=== PATIENT | female | born 1955 | race Caucasian/White ===

== ENCOUNTER 2019-09-26 11:46 | Outpatient (CLI) | payer BC, SELFPAY ==
[2019-09-26 12:36] LABS: Basophils Absolute Auto 0.1 K/mm3 (0.0-0.1); Basophils Percent Auto 0.9 % (0.2-1.2); Eosinophils Absolute Auto 0.2 K/mm3 (0-0.3); Eosinophils Percent Auto 3.8 % (0-4.4); Hematocrit 39.3 % (37.0-47.0); Hemoglobin 12.6 g/dL (12.0-15.0); Immature Granulocyte Absolute 0.02 K/mm3 (0.00-0.031); Immature Granulocyte Percent A 0.4 % (0-0.5); Lymphocytes Absolute Auto 2.53 K/mm3 (0.9-3.2); Lymphocytes Percent Auto 46.3 % (18.3-44.2); Mean Corpuscular HGB Conc 32.1 g/dl (32-36); Mean Corpuscular Hemoglobin 30.4 pg (26-34); Mean Corpuscular Volume 94.7 fl (80-100); Mean Platelet Volume 9.6 fl (7.4-10.4); Monocytes Absolute Auto 0.4 K/mm3 (0.1-0.6); Monocytes Percent Auto 7.1 % (2.6-8.5); Neutrophils Absolute Auto 2.3 K/mm3 (1.3-6.7); Neutrophils Percent Auto 41.5 % (45.5-73.1); Platelet Count Result 254 k/mm3 (150-375); Red Blood Count 4.15 M/mm3 (4.2-5.4); Red Cell Distribution Width 12.5 % (11.5-14.5); White Blood Count 5.5 K/mm3 (4.5-10.0)
[2019-09-26 13:45] LABS: Albumin Level 4.2 g/dL (3.5-5.1)
[2019-09-26 13:46] LABS: Alanine Aminotransferase 25 U/L (4-35); Alkaline Phosphatase 66 U/L (38-126); Aspartate Amino Transferase 33 U/L (14-36); Bilirubin,Total 0.6 mg/dL (0.2-1.3); Blood Urea Nitrogen 10 mg/dL (7-17); Calcium 9.3 mg/dL (8.4-10.2); Carbon Dioxide 27 mmol/L (22-30); Chloride 107 mmol/L (98-107); Estimated Glomerular Filt Rate > 60; Glucose 80 mg/dL (65-105); Potassium 4.3 mmol/L (3.4-5.0); Sodium 140 mmol/L (137-145)
== END 2019-09-26 11:47 | disposition home or self-care (01) ==
PROVIDERS: PCP Internal Medicine; Visit Provider Internal Medicine
DX: K21.9 Gastro-esophageal reflux disease without esophagitis (principal)
CPT/HCPCS: 36415; 80053; 85025

== ENCOUNTER 2019-09-29 06:12 | Outpatient (CLI) | payer BC, SELFPAY | END 2019-09-29 06:13 | disposition home or self-care (01) | PROVIDERS: PCP Internal Medicine; Visit Provider Internal Medicine Gastroenterology | DX: Z01.812 Encounter for preprocedural laboratory examination (principal); Z20.828 Contact with and (suspected) exposure to other viral communicable diseases | CPT/HCPCS: 87635; C9803; U0003 ==

== ENCOUNTER 2019-10-01 01:01 | Day surgery (SDC) | payer BC, SELFPAY ==
[2019-09-25 12:52] VITALS: BMI 23.0
[2019-10-01 08:31] VITALS: BP 128/72; PULSE 82; RESP 18; TEMP 36.6; O2SAT 100
[2019-10-01] MEDS: LACTATED RINGERS 1,000 ML 150 ML IV CONT (08:43)
--- NOTE | 2019-10-01 08:46 | WPDANESEPPF ---
Anes - Initial Pre Proc Eval Procedure: Operation Date: 10/01/19 09:00 Proposed Procedures p Esophagogastroduodenoscopy & Colonoscopy - Behzad Cardoso MD Date/Time: 10/01/19 08:46 Surgeon: Behzad Cardoso MD Pre Op Diagnosis: Dysphagia/ Colitis Patient Data Age: 63 Gender: F Height: 5 ft 3 in Weight: 58.8 kg Last Vital Signs Temp 97.8 F 10/01/19 08:31 Pulse 82 10/01/19 08:31 Resp 18 10/01/19 08:31 BP 128/72 10/01/19 08:31 Pulse Ox 100 10/01/19 08:31 Allergies Allergy/AdvReac Type Severity Reaction Status Date / Time [id number] Antimigraine Allergy Severe Chest pain Verified 10/01/19 08:29 Agents aspirin Allergy Unknown Unknown Verified 10/01/19 08:29 diclofenac Allergy Unknown Unknown Verified 10/01/19 08:29 misoprostol Allergy Unknown Unknown Verified 10/01/19 08:29 Penicillins Allergy Unknown Unknown Verified 10/01/19 08:29 NONSTEROIDAL Allergy Mild GI UPSET Uncoded 10/01/19 08:29 Home Medications Medication Instructions Recorded Confirmed Type fentanyl 25 mcg/hr transdermal 1 patch TRANSDERM Q72H 04/22/19 09/25/19 History patch hydrocodone 10 mg-acetaminophen 1 tablet PO Q6H PRN 04/22/19 09/25/19 History 325 mg tablet sumatriptan succinate 100 mg tablet 100 mg PO ONCE PRN 04/22/19 09/25/19 History topiramate 100 mg tablet 100 mg PO BID 04/22/19 09/25/19 History potassium chloride 20 mEq 20 meq PO DAILY #90 tablet 05/21/19 09/25/19 Rx tablet,extended release cetirizine 10 mg tablet 10 mg PO DAILY PRN 07/07/19 09/25/19 History alprazolam 0.25 mg tablet 0.25 mg PO DAILY PRN #30 tablet 09/03/19 09/25/19 Rx amitriptyline 25 mg tablet 25 mg PO DAILY #90 tablet 09/03/19 09/25/19 Rx dicyclomine 10 mg capsule 10 mg PO TID #90 cap 09/03/19 09/25/19 Rx omeprazole 40 mg capsule,delayed 40 mg PO DAILY #90 cap 09/03/19 09/25/19 Rx release budesonide 3 mg 3 mg PO TID PRN each 09/08/19 09/25/19 History capsule,delayed,extended release melatonin 10 mg PO HS 09/25/19 09/25/19 History lj-xh-glrp-FA-Ca carb-vit K tablet PO DAILY 09/25/19 History [Women's Multivitamin] niacin 09/25/19 History Patient hx anesthesia problems: none Family hx anesthesia problems: none PMFSH Past Medical History Medical History (Updated 10/01/19 @ 08:47 by Isaiah Catalan MD) Anxiety Dysphagia GERD (gastroesophageal reflux disease) Family History Family History (Updated 01/08/14 @ 07:13 by DOCTOR UNKNOWN) Father Carcinoma of colon Mother Family history of lung cancer, Onset Age: 68 Family history of malignant neoplasm of brain, Onset Age: 68 Social History Social History Smoking status: Never smoker Alcohol intake: never Gender identity (if verbalized by the patient): Female Anes - Eval Final PreProcedure Day of Procedure 10/01/19 08:46 Patient weight: normal Heart: regular rate and rhythm Lungs: clear to auscultation Airway: Mallampati scale class II Neurological: alert and oriented Last oral intake: >/= 8 hours ASA classification: II Emergent: no Anesthetic plan: proceed Anesthesia type and monitoring: general GIVS and standard monitoring Informed Consent: The patient's anesthetic plan and its attendant risks and benefits were discussed with the patient/family/POA. Questions were solicited and answers provided to the satisfaction of the patient/family/POA.
--- NOTE | 2019-10-01 09:01 | WPDHPUPDATE1 ---
History and Physical Update Update Date/Time: 10/01/19 09:01 History and Physical has been reviewed, including an updated exam of the patient. There are NO changes in the patient's condition. Risks, benefits, and alternatives have been discussed and questions answered. Patient agrees to proceed with procedure.
[2019-10-01 09:35] VITALS: BP 135/72; PULSE 70; RESP 22; O2SAT 99
[2019-10-01 09:47] VITALS: BP 112/68; PULSE 67; RESP 17; O2SAT 99
[2019-10-01 10:07] VITALS: BP 113/77; PULSE 62; RESP 14; O2SAT 98
== END 2019-10-01 10:18 | disposition home or self-care (01) ==
PROVIDERS: PCP Internal Medicine; Visit Provider Internal Medicine Gastroenterology
PROC: 0DJ08ZZ Inspection of Upper Intestinal Tract, Via Natural or Artificial Opening Endoscopic (ICD-10-PCS; CPT 43235; principal; 2019-10-01 09:00)
DX: Z12.11 Encounter for screening for malignant neoplasm of colon (principal); K64.8 Other hemorrhoids; K52.9 Noninfective gastroenteritis and colitis, unspecified; K59.00 Constipation, unspecified; K21.0 Gastro-esophageal reflux disease with esophagitis; K29.70 Gastritis, unspecified, without bleeding; F41.9 Anxiety disorder, unspecified; Z80.0 Family history of malignant neoplasm of digestive organs
CPT/HCPCS: 45380; 43239; 88305; J2704; J7120

== ENCOUNTER 2019-12-04 15:33 | Outpatient (CLI) | payer BC, SELFPAY ==
--- NOTE | ~2019-12-04 | MM_ITS ---
EXAMINATION: MM screening margaret BI w carlota HISTORY: Screening TECHNIQUE: Craniocaudal and mediolateral oblique 3-D tomosynthesis images were obtained and synthetic 2-D images were generated. CAD analysis was submitted and interpreted. COMPARISON: Comparison to multiple prior studies sequentially, with oldest reviewed study dated 01/01. BREAST PARENCHYMAL COMPOSITION: There are scattered areas of fibroglandular density. FINDINGS: There is no evidence of suspicious mass, calcification, or architectural distortion to sugg est malignancy in either breast. There has been no suspicious interval change. IMPRESSION: 1. No mammographic evidence of malignancy. 2. Recommend routine screening mammography in one year. BI-RADS Category 1: Negative Reviewed, dictated and finalized at location A.
== END 2019-12-04 15:34 | disposition home or self-care (01) ==
LOC: ANHIMG 15:33
PROVIDERS: PCP Internal Medicine; Visit Provider Internal Medicine
DX: Z12.31 Encounter for screening mammogram for malignant neoplasm of breast (principal)
CPT/HCPCS: 77063; 77067

== ENCOUNTER 2020-03-08 12:48 | Outpatient (CLI) | payer BC, SELFPAY ==
--- NOTE | ~2020-03-08 | US_ITS ---
EXAMINATION: US axilla BI INDICATION: Axillary lymphadenopathy TECHNIQUE: Bilateral axillary ultrasound is performed. COMPARISON: None available FINDINGS: No suspicious cystic or solid mass is identified. Normal-sized bilateral axillary lymph nod es are identified. No pathologically enlarged lymph nodes are present. IMPRESSION: 1. No pathologically enlarged axillary lymph nodes. Reviewed, dictated and finalized at location A.
== END 2020-03-08 12:49 | disposition home or self-care (01) ==
PROVIDERS: PCP Family Medicine; Visit Provider Family Medicine
DX: R59.0 Localized enlarged lymph nodes (principal)
CPT/HCPCS: 76882

== ENCOUNTER 2020-10-15 15:44 | Outpatient (CLI) | payer BC, SELFPAY ==
--- NOTE | ~2020-10-15 | MR_ITS ---
EXAMINATION: MR brain/brain stem wo/w con DATE: 10/15/2020 16:55 INDICATION: Migraine headache. TECHNIQUE: Magnetic resonance imaging (MRI) of the brain and brainstem was performed without and with 12 mL MultiHance intravenous contrast. Sequences included sagittal and axial T1-weighted FSE, axial diffusion-weighted FS EPI, axial T2*-weighted GRE, axial T2-weighted FLAIR Propeller, and axial T2-we ighted Propeller. Postcontrast sequences included axial and coronal T1-weighted FSE. Apparent diffusi on coefficient (ADC) maps were created. COMPARISON: Brain MRI 04/11/2008 FINDINGS: There are scattered areas of nonspecific increased T2-weighted signal intensity in the cere bral white matter, which is within normal limits for the patient's age. There is no intracranial hemo rrhage, acute infarction, or abnormal intracranial mass lesion. The ventricles are normal in size. Th e orbits are normal. There is mild mucosal thickening in the ethmoid sinuses. There is a small left m astoid effusion. IMPRESSION: 1. Normal aging brain. Reviewed, dictated and finalized at location A. IMPRESSION: 1. Normal aging brain.
[2020-10-15 16:17] LABS: Estimated Glomerular Filt Rate > 60
== END 2020-10-15 15:45 | disposition home or self-care (01) ==
PROVIDERS: PCP Family Medicine; Visit Provider Family Medicine
DX: G43.909 Migraine, unspecified, not intractable, without status migrainosus (principal)
CPT/HCPCS: 70553; A9577

== ENCOUNTER 2021-03-18 12:18 | Outpatient (CLI) | payer MEDICARE, SELFPAY ==
--- NOTE | ~2021-03-18 | US_ITS ---
EXAMINATION: US right upper quadrant EXAM DATE: 03/18/2021 13:03 INDICATION: Right upper quadrant pain. TECHNIQUE: Multiple grayscale and Doppler images of the abdomen right upper quadrant were obtained (b y a technologist who performed the scan) and subsequently reviewed. Comparison is made to prior exami nation from 08/01/2013. FINDINGS: The pancreatic head and body are normal in appearance. The pancreatic tail is not visualized. The l iver has normal echogenicity and contour. There are no focal liver lesions identified. There is no evidence of intrahepatic biliary duct dilation. Portal venous flow was seen in the hepatopedal, nor mal direction and has normal Doppler waveform. No right-sided hydronephrosis. Common bile duct measures 4 mm, which is normal. The gallbladder wall is normal in thickness, with ex pected amount of distention. No sonographic evidence of pericholecystic fluid. There is no cholelit hiases. Technologist performing exam reports patient did not demonstrate sonographic Dukes's sign. Please note that this sign is less reliable in patients who have received pain medication. IMPRESSION: Unremarkable abdominal ultrasound exam. Reviewed, dictated and finalized at location A.
== END 2021-03-18 12:19 | disposition home or self-care (01) ==
LOC: ANHIMG 12:28
PROVIDERS: PCP Family Medicine
DX: R10.11 Right upper quadrant pain (principal)
CPT/HCPCS: 76705

== ENCOUNTER 2024-02-11 08:39 | Outpatient (CLI) | payer MEDICARE, SELFPAY ==
--- NOTE | ~2024-02-11 | XR_ITS ---
XR cervical spine 4-5V Ordering provider: Jennifer Oviedo, History: . DEGEN OF C INTERVERTEBRAL DISC. RT SIDE PAIN X 1YR . Comparison: None. FINDINGS: VERTEBRAL BODIES: Normal height and alignment. No visible fracture or subluxation. The dens is intact . DISK SPACES: Narrowing of the disc C4-C5, C5-C6 and C6-C7. Multilevel facet joint disease. Multilevel uncovertebral joint osteoarthritic changes. PARASPINOUS SOFT TISSUES: No prevertebral soft tissue swelling. IMPRESSION: No acute osseous abnormality cervical spine. Multilevel degenerative disc disease. Reviewed, dictated and finalized at location A.
== END 2024-02-11 08:40 | disposition home or self-care (01) ==
PROVIDERS: PCP Family Medicine; Visit Provider Family Medicine
DX: M50.30 Other cervical disc degeneration, unspecified cervical region (principal)
CPT/HCPCS: 72050

== ENCOUNTER 2024-05-21 09:33 | Outpatient (CLI) | payer MEDICARE, SELFPAY ==
--- NOTE | ~2024-05-21 | XR_ITS ---
Thoracic spine: Clinical Indication: Back pain AP and lateral views were performed. No fracture is seen. There is normal alignment of the vertebrae. The intervertebral disc spaces appe ar normal. Paravertebral soft tissues appear normal. Impression: No significant abnormalities noted. Reviewed, dictated and finalized at [facility]. P LEADER Impression: No significant abnormalities noted.
--- NOTE | ~2024-05-21 | XR_ITS ---
Cervical Spine: AP, lateral, open-mouth views Clinical History: Pain Findings: No acute fracture seen. There is reversal normal cervical lordosis, with 3 mm anterolisthes is of C3 over C4. There is moderate to advanced degenerative disc narrowing at C4-C5, C5-C6, C6-C7. T here are mild facet joint degenerative changes throughout the cervical spine. Pre-vertebral soft tiss ues are unremarkable. Impression: Jiyt-qk-spxhvhnq degenerative spondylosis, as above. 3 mm anterolisthesis of C3 over C4. Mild reversal of the normal cervical lordosis. Reviewed, dictated and finalized at location . TY AND HEALTH MANAGER Impression: Shtz-ut-xqlxprfq degenerative spondylosis, as above. 3 mm anterolisthesis of C3 over C4. Mild reversal of the normal cervical lordosis.
== END 2024-05-21 09:34 | disposition home or self-care (01) ==
PROVIDERS: PCP Family Medicine
DX: M47.812 Spondylosis without myelopathy or radiculopathy, cervical region (principal); M43.12 Spondylolisthesis, cervical region; M54.6 Pain in thoracic spine
CPT/HCPCS: 72050; 72070

== ENCOUNTER 2024-06-28 07:04 | Outpatient (CLI) | payer MEDICARE, SELFPAY ==
--- NOTE | ~2024-06-28 | MR_ITS ---
EXAMINATION: MR lumbar spine wo con DATE: 06/28/2024 08:04 INDICATION: Radicular pain with upper and lower back pain TECHNIQUE: Magnetic resonance imaging (MRI) of the lumbar spine was performed without intravenous con trast. Sequences included sagittal T2-weighted FSE, sagittal T2-weighted FS FSE, sagittal T1-weighted FSE, and axial T2-weighted FSE. COMPARISON: None FINDINGS: 2 mm anterolisthesis L4 on L5. Vertebral body heights are normal. Normal marrow signal. Moderate dis c height loss at L4-L5 and mild disc height loss at T11-T12, L2-L3 and L3-L4. The conus medullaris te rminates at L2. There is normal signal in the caudal spinal cord. Paravertebral soft tissues are unre markable. The following disc levels are specifically discussed: T11-T12: Disc is minimally bulging with superimposed annular fissure and anterior disc protrusion. Th ere is mild left facet osteoarthritis. There is no neural foraminal stenosis. There is no central can al stenosis. T12-L1: The disc does not extend beyond the endplate margin. There is mild bilateral facet joint oste oarthritis. There is no neural foraminal stenosis. There is no central canal stenosis. L1-L2: The disc does not extend beyond the endplate margin. There is mild bilateral facet joint osteo arthritis. There is no neural foraminal stenosis. There is no central canal stenosis. L2-L3: Disc is bulging. There is mild bilateral facet joint osteoarthritis. There is mild bilateral n eural foraminal stenosis. There is mild central canal stenosis. L3-L4: Disc is bulging. There is mild bilateral facet joint osteoarthritis. There is mild bilateral n eural foraminal stenosis. There is mild central canal stenosis. L4-L5: Disc is bulging. There is hypertrophy of the ligamentum flavum. There is mild right and moder ate left facet joint osteoarthritis. There is mild to moderate bilateral neural foraminal stenosis. T here is mild central canal stenosis. L5-S1: Disc is minimally bulging. There is mild bilateral facet joint osteoarthritis. There is no natalie ral foraminal stenosis. There is no central canal stenosis. IMPRESSION: 1. Mild to moderate lumbar spondylosis. Reviewed, dictated and finalized at location A. CAL ILLUSTRATOR
== END 2024-06-28 07:05 | disposition home or self-care (01) ==
PROVIDERS: PCP Family Medicine; Visit Provider Nurse Practitioner Family
DX: M47.26 Other spondylosis with radiculopathy, lumbar region (principal)
CPT/HCPCS: 72148

== ENCOUNTER 2024-07-16 10:21 | Outpatient (CLI) | payer MEDICARE, SELFPAY ==
--- NOTE | ~2024-07-16 | DEXA_ITS ---
Bone Density Report Name: KAREY POND Age: 68 Sex: Female Ethnicity: White Date of : 1955 Indication: osteopenia; height loss; hysterectomy; Referring Provider: RILEY, PATSY Topete Study: Bone densitometry was performed. Exam Date: July 16, 2024 Accession number: [id number] Bone Density: Region BMD T-score Z-score Classification AP Spine(L1-L4) 0.897 -1.4 0.6 Osteopenia Femoral Neck (Left) 0.613 -2.1 -0.4 Osteopenia Total Hip (Left) 0.725 -1.8 -0.4 Osteopenia Femoral Neck (Right) 0.611 -2.1 -0.4 Osteopenia Total Hip (Right) 0.695 -2.0 -0.6 Osteopenia Total Hip Mean 0.710 -1.9 -0.5 Osteopenia World Health Organization criteria for BMD impression classify patients as: Normal (T-score at or above -1.0), Osteopenia (T-score between -1.0 and -2.5), or Osteoporosis (T-score at or below -2.5). 10-year Fracture Risk(1): Major Osteoporotic Fracture 12% Hip Fracture 2.4% Reported Risk Factors: [place] (), Neck BMD=0.611, BMI=24.7 (1) FRAX(R) Version 3.08. Fracture probability calculated for an untreated patient. Fracture probability may be lower if the patient has received treatment. Previous Exams: Region Exam Age BMD T-score BMD Change BMD Change Date g/cm2 vs Baseline vs Previous Total Hip(Left) 07/16/2024 68 0.725 -1.8 -0.040 (-5.2%) -0.040 (-5.2%) 03/25/2019 63 0.765 -1.5 Total Hip(Right) 07/16/2024 68 0.695 -2.0 -0.024 (-3.4%) -0.024 (-3.4%) 03/25/2019 63 0.719 -1.8 *Denotes significance at 95% confidence level, LSC for Total Hip = 0.027 g/cm2 # Denotes dissimilar scan types or analysis methods Clinical Information Provided by Patient: Has used the following medications: Vitamin D, Calcium Has the following medical conditions: Hysterectomy Patient maximum height was 64.0 Menopause Age: 28 No regular weight bearing exercise Does not regularly consume dairy products Drinks caffeinated beverages Onset of menses at age 11 Number of children 1 Impression: The patient has low bone mass, based on the Left Femoral Neck T-score. The patient has an estimated ten-year risk of hip fracture of 2.4% and an estimated ten-year risk of major fracture of 12%, based on the WHO FRAX algorithm. No significant bone loss was observed. Discussion: BONE DENSITY IS LOW AT ONE OR MORE SKELETAL SITES. This patient's lowest T-score is low at one or more skeletal sites. It meets the World Health Organization's (WHO) criteria for ?low bone mass? (T-score between -1.0 and -2.5). The patient's 10-year risk of fracture as calculated by FRAX is less than the threshold where pharmacological therapy is recommended by the National Osteoporosis Foundation (NOF). However, all treatment decisions require clinical judgment and consideration of individual patient factors, including patient preferences, comorbidities, previous drug use, risk factors not captured in the FRAX model (e.g., frailty, falls, vitamin D deficiency, increased bone turnover, interval significant decline in bone density) and possible under or overestimation of fracture risk by FRAX. The patient should follow a healthful lifestyle (good nutrition with adequate calcium and vitamin D, and appropriate weight-bearing exercise). Follow-Up: Consider repeating this study in 2 to 3 years to reassess this patient's status, or sooner if there is some new clinical indication. Reported by: CORDELL on 07/16/2024 11:03:00 AM. Reviewed, dictated and finalized at location [facility]
--- OUTSIDE RECORDS SUMMARY | 2024-07-16 11:42 | XMS_ITS | CONTINUITY OF CARE DOCUMENT ---
Author Name audi, audi Address Unknown Organization [facility] Address [address] [place] [address] Phone [phone] Care Team Providers Care Embedded Linux Engineer Name Role Phone Charlie ULLOA, Shashi Unavailable PATSY LIN MD Unavailable PATSY LIN MD Unavailable [phone] PROBLEMS Condition Status Date Provider Notes Shortness of breath active Ekaterina Jean-Baptiste Chest pain active Ekaterina Jean-Baptiste Migraines active Kelsey Pace ENCOUNTERS Date Type Provider Location Encounter Diagnosis - In-person encounter Office Visit Shashi Guerra MD [place] [facility] Migraines VITAL SIGNS Date Observation Value Provider Body Mass Index (Ratio) 24.80 kg/m2 Tyler Guerra MD blood pressure, cuff size regular Ke romy Hines blood pressure, diastolic 80 mm[Hg] Valentin Pace blood pressure, systolic 120 mm[Hg] Harjeet Hines oxygen saturation, oximetry 98 % Cecelia Hines respiratory rate E&M 16 /min Cecelia hi pulse rate 66 /min Cecelia funes weight E&M 140 [lb_av] Cecelia funes height E&M 63 [in_i] Cecelia Be lder ALLERGIES Allergy Name Onset Date Reaction Criticality Status ASA Low Criticality active PCN Low Criticality active HISTORY OF MEDICATION USE Medication Status Instructions Dates Provider Indications Com ments HYDROCODONE-ACET AMINOPHEN TABLET active 1 to 2 a day as needed 7 Cecelia Hines HAIR FORMULA EXTRA STRENGTH ORAL TABLET active 3 pills a day 7 Cecelia Hines VITAMIN B6 TABLET active once a day 7 Cecelia Hines IMITREX 6 MG/0.5ML SUBCUTANEOUS SOLUTION active as needed 7 Cecelia Hines IMITREX 100 MG ORAL TABLET active as needed 7 Cecelia Hines ALPRAZOLAM 0.25 MG ORAL TABLET active take one pill a day 7 Cecelia Hines OMEPRAZOLE 20 MG ORAL TABLET DELAYED RELEASE active one tab daily 7 Cecelia Hines TOPAMAX 100 MG ORAL TABLET active take one pill twice a day 7 Cecelia Hines SOCIAL HISTORY Date Observation Value Provider drug use no Kelsey Pace alcohol use no Kelsey Arandalett smoking status Never smoker Cecelia evans INSURANCE PROVIDERS Payer name Policy type / Coverage type [place] red democrat ID [facility] [id number] ADVANCE DIRECTIVES Name Date DISCUSSED - NO DECISION MADE TREATMENT PLAN Date Name Performer Cardiology New Patie nt :Chest pain while holding a heavy object and soreness afterward. Kelsey Pace Cardiology New Patie nt :SOB with situational chest pain described above. Kelsey Paec Date Name Stress Routine CT, Coronary Calcium Score Complete Echo HISTORY OF PROCEDURES Procedure Date Procedure Name Provider Procedure Notes S tatus EKG Shashi Guerra MD completed Stress EKG Kal Almanza MD completed Regadenoson, 4 units Brittany Lema MD completed Cardiolite, 2 units Brittany Lema MD completed SPECT Images Brittany Lema MD compl eted
--- OUTSIDE RECORDS SUMMARY | 2024-07-16 11:42 | XMS_ITS | Patient Health Summary ---
Author Organization [facility] Address [address] [place] [address] Care Team Providers Care Funnel Setter Name Role Phone Sudhakar Bowman MD Primary Care Provider [phone] Note from [facility],non-owned Affiliates and Associated Physician Practices is amultiple site organization consisting of ambulatory clinics and hospital sitesin [place], [place], [place] and [place]. This disclosure is being madepursuant to the Care Everywhere program and may not contain all information available regarding this patient. Last updated 18.[facility] Allergies * Penicillins(Swelling) Medications * Be aware that medications may not be up to date on this document. Alwaysverify current medications with the patient. * potassium chloride ER (KLOR-CON) 10 MEQ tablet(Started 05/28/2018) once daily * SUMAtriptan (IMITREX) 100 MG tablet(Started 06/03/2018) as needed * topiramate (TOPAMAX) 100 MG tablet(Started 05/19/2018) once daily * amitriptyline (ELAVIL) 10 MG tablet(Started 05/16/2018) at bedtime * ALPRAZolam (XANAX) 0.25 MG tablet(Started 06/03/2018) once daily * HYDROcodone-acetaminophen (NORCO) 10-325 MG tablet(Started 05/27/2018) as needed * fentaNYL (DURAGESIC) 25 MCG/HR patch(Started 05/18/2018) Apply to skin every 3 days Active Problems Problem Noted Date Diagnosed Date History of squamous cell carcinoma in situ 12/02 Encounter for screening for osteoporosis 019 Idiopathic peripheral neuropathy 11/04/2018 Insomnia 11/04/2018 Lesion of brain 11/04/2018 Malaise and fatigue 11/04/2018 Immunizations * INFLUENZA VACCINE(Given 04/02/2018) Social History Tobacco Use Types Packs/Day Years Used Date Smoking Tobacco: Never Smokeless Tobacco: Never Alcohol Use Standard Drinks/Week Comments No 0 (1 standard drink = 0.6 oz pur e alcohol) Sex and Gender Information Value Date Recorded Sex Assigned at Not on file Gender Identity Not on file Sexual Orientation Not on file Procedures * OH TANGNTL BX SKIN SINGLE LES(Performed 12/16/2018) Performed for Neoplasm of uncertain behavior of skin * DERMATOPATHOLOGY(Performed 12/03/2018) Performed for Neoplasm of uncertain behavior of skin * OH DESTROY PREMALIG LESION, 1ST LESION(Performed 06/18/2018) Performed for Actinic keratosis * OH DESTROY PREMALIG LESION, 2-14(Performed 06/18/2018) Performed for Actinic keratosis Results * OH TANGNTL BX SKIN SINGLE LES (12/16/2018 4:06 PM CDT) Narrative Shahla Benjamin MD - 12/16/2018 4:06 PM CDT Shravan Cárdenas MD 12/03/2018 11:25 AM Risks, benefits and alternatives to shave biopsy were discussed with the patient. Verbal consent was obtained. Encounter Diagnoses Name Primary? Neoplasm of uncertain behavior of skin Yes Seborrheic keratosis Multiple benign nevi of upper and lower extremities, and trunk Solar lentiginosis History of squamous cell carcinoma in situ (SCCIS) Location: central back Skin prep: Alcohol Anesthesia: 1% lidocaine with epinephrine Hemostasis: Aluminum chloride Dressing and wound care discussed. Specimen(s) placed in a patient labeled container and sent to [facility] Dermatopathology. Patient agrees to phone call for results and message if not available. Shravan Cárdenas M.D. PGY-4 dermatology resident Shahla Benjamin MD PROCEDURE/MINOR MAC RGICAL ORDERABLES * DERMATOPATHOLOGY (12/03/2018 12:00 AM CDT) Case Report Dermatopathology Report Case: [id number] Authorizing Provider: Shahla Benjamin MD Collected: 12/03/2018 12:00 AM Ordering Location: [facility] Received: 12/04/2018 09:41 AM Dermatology Pathologist: Shahla Benjamin MD Specimen: Skin, central back 12:48 PM CDT DERMATOPATHOLOGY LABORATORY Final Diagnosis Specimen A. SKIN, central back: DERMATOFIBROMA (D23.9) 12:48 PM CDT DERMATOPATHOLOGY LABORATORY Clinical History LPLK, BCC,MM 12:48 PM CDT DERMATOPATHOLOGY LABORATORY Gross Description Specimen A: Received is one formalin filled container labeled with the patient's name and designated central back. The specimen consists of a shave biopsy measuring [id number] mm. Jar 0. 12:48 PM CDT DERMATOPATHOLOGY LABORATORY Microscopic Description Specimen A. SKIN, central back: There is epidermal hyperplasia. Within the dermis, there are fibrohistiocytic cells in haphazard array among coarse collagen bundles. 12:48 PM CDT DERMATOPATHOLOGY LABORATORY Disclaimer An external and internal positive and negative controls are appropriate for the histochemical, immunohistochemical and immunofluorescence stain(s) in this case (if any), except where stated explicitly. The performance characteristics of the stain(s) cited in this report were developed and its performance characteristic determined by the Dermatopathology Laboratory at [facility], directed by Dr. Jossue Fu. These tests need not be, and therefore are not, approved by the [place] Food and Drug Administration. The tests are used for clinical purposes. Billing Codes Specimen Charges Stain Charges 20105 1 12:48 PM CDT DERMATOPATHOLOGY LABORATORY Embedded Images 12:48 PM CDT DERMATOPATHOLOGY LABORATORY Pathology/Cytolog y TISSUE SPECIMEN FROM SKIN / Unknown 12/03/2018 12/04/2018 9:41 AM CDT Shahla Benjamin MD LAB - PATHOLOGY/CY TOLOGY ORDERABLES DERMATOPATHOLOGY LABORATORY [facility] - Department of Dermatology [address] [place] [address], [address] [place] [address], [facility] [phone] * OH DESTROY PREMALIG LESION, 2-14, OH DESTROY PREMALIG LESION, 1ST LESION (06/18/2018 11:27 AM MAINTENANCE MILLWRIGHT) Narrative Shahla Benjamin MD - 06/18/2018 11:27 AM MAINTENANCE MILLWRIGHT Ari Whitfield MD 06/11/2018 1:17 PM Diagnosis and treatment options discussed. Cryotherapy (Liquid Nitrogen) to 5 lesions for 3-5 seconds each (pulsed fashion). Number of cycles: 1. Wound care reviewed. Central chest x5 Ari Whitfield U Dermatology Resident PGY-4 Shahla Benjamin MD PROCEDURE/MINOR MAC RGICAL ORDERABLES Care Teams Funnel Setter Relationship Specialty Start Date End Date Sudhakar Bowman MD [address] [place] [id number] PCP - General 11/28/19
--- OUTSIDE RECORDS SUMMARY | 2024-07-16 11:42 | XMS_ITS | Clinical Summary ---
Author Organization [facility] [employer] Address [address] [place] [address] Care Team Providers Care Financial Planning Advisor Name Role Phone Sudhakar Bowman MD Primary Care Provider [phone] [facility],non-owned Affiliates and Associated Physician Practices is amultiple site organization consisting of ambulatory clinics and hospital sitesin [place], [place], [place] and [place]. This disclosure is being madepursuant to the Care Everywhere program and may not contain all information available regarding this patient. Last updated 18.[facility] Allergies Active Allergy Reactions Criticality Noted Date Comments Penicillins Swelling 06/11/2018 Medications * Be aware that medications may not be up to date on this document. Alwaysverify current medications with the patient. Medication Sig Dispensed Refills Start Date End Date Status potassium chloride ER (KLOR-CON) 10 MEQ tablet once daily 05/28/2018 Active SUMAtriptan (IMITREX) 100 MG tablet as needed 06/03/2018 Active topiramate (TOPAMAX) 100 MG tablet once daily 05/19/2018 Active amitriptyline (ELAVIL) 10 MG tablet at bedtime 05/16/2018 Active ALPRAZolam (XANAX) 0.25 MG tablet once daily 06/03/2018 Active HYDROcodone-acetaminop hen (NORCO) 10-325 MG tablet as needed 05/27/2018 Active fentaNYL (DURAGESIC) 25 MCG/HR patch Apply to skin every 3 days 05/18/2018 Active Active Problems Problem Noted Date Diagnosed Date History of squamous cell carcinoma in situ 12/02 Encounter for screening for osteoporosis 019 Idiopathic peripheral neuropathy 11/04/2018 Insomnia 11/04/2018 Lesion of brain 11/04/2018 Malaise and fatigue 11/04/2018 Immunizations Name Administration Dates Next Due INFLUENZA VACCINE 04/02/2018 Social History Tobacco Use Types Packs/Day Years Used Date Smoking Tobacco: Never Smokeless Tobacco: Never Alcohol Use Standard Drinks/Week Comments No 0 (1 standard drink = 0.6 oz pur e alcohol) Sex and Gender Information Value Date Recorded Sex Assigned at Not on file Gender Identity Not on file Sexual Orientation Not on file Plan of Treatment Health Maintenance Due Date Last Done Comments BONE DENSITY TESTING 1955 COLOGUARD (AGES 45-75) - COL ON CA SCREENING 1955 COLON MONITORING 1955 COLONOSCOPY - COLON CA SCREENING 1955 CT COLONOGRAPHY - COLON CA SCREENING 1955 Colorectal Cancer Screening 1955 FIT - COLON CA SCREENING 1955 FLEX SIG - COLON CA SCREENING 1955 LIPID TESTING 1955 MAMMOGRAM 1955 HEPATITIS C SCREENING 12/10/1973 DTAP/TDAP/TD VACCINES (1 - Tdap) 12/14/1974 PNEUMOCOCCAL VACCINE 50+ (1 of 1 - PCV) 12/14/2005 ZOSTER VACCINE (1 of 2) 12/14/2005 COVID-19 VACCINE ( - 2023-2 5 season) 2024 INFLUENZA VACCINE (#1) 2024 04/02/2018 DEPRESSION SCREENING 05/14/2024 Respiratory Syncytial Virus (RSV) Vaccine Pt: or over 60 yrs (1 - 1-dose 75+ series) 12/14/2030 HEPATITIS B VACCINE Aged Out No longe r eligible based on patient's age to complete this topic HIB VACCINE Aged Out No longer eligi ble based on patient's age to complete this topic HPV VACCINE Aged Out No longer eligi ble based on patient's age to complete this topic MENINGOCOCCAL (Group B) VACCINE Aged Out No longer eligible based on patient's age to complete this topic MENINGOCOCCAL VACCINE Aged Out No martha nnamdi eligible based on patient's age to complete this topic Care Teams Financial Planning Advisor Relationship Specialty Start Date End Date Sudhakar Bowman MD [address] [place] [address] PCP - General 11/28/19
--- OUTSIDE RECORDS SUMMARY | 2024-07-16 11:42 | XMS_ITS | Referral Summary ---
Author Organization [facility] [employer] Address [address] [place] [address] Care Team Providers Care Director Of Web Marketing Name Role Phone Sudhakar Bowman MD Primary Care Provider [phone] Source Comments [facility] [employer],non-owned Affiliates and Associated Physician Practices is amultiple site organization consisting of ambulatory clinics and hospital sitesin [place], [place], [place] and [place]. This disclosure is being madepursuant to the Care Everywhere program and may not contain all information available regarding this patient. Last updated 18.[facility] [employer] Allergies Active Allergy Reactions Criticality Noted Date [...] Orientation Not on file Plan of Treatment Not on file Care Teams Director Of Web Marketing Relationship Specialty Start Date End Date Sudhakar Bowman MD [address] [place] [address] PCP - General 11/28/19
== END 2024-07-16 10:22 | disposition home or self-care (01) ==
LOC: ANHIMG 10:23
PROVIDERS: PCP Family Medicine; Visit Provider Family Medicine
DX: M85.89 Other specified disorders of bone density and structure, multiple sites (principal); Z78.0 Asymptomatic menopausal state
CPT/HCPCS: 77080

== ENCOUNTER 2024-08-21 08:50 | Outpatient (CLI) | payer MEDICARE, SELFPAY ==
--- NOTE | ~2024-08-21 | MM_ITS ---
Corrected Report Correction to Ordering Provider 08/21/2024 SHARAN This report was recreated on 08/21/2024.. Original report was signed by . EXAMINATION: MM screening margaret BI w [facility] HISTORY: Screening TECHNIQUE: Craniocaudal and mediolateral oblique 3-D tomosynthesis images were obtained and synthetic 2-D images were generated. CAD analysis was submitted and interpreted. COMPARISON: Comparison to multiple prior studies sequentially, with oldest reviewed study dated 02/26/2015. BREAST PARENCHYMAL COMPOSITION: Not dense: There are scattered areas of fibroglandular density. FINDINGS: There is no evidence of suspicious mass, calcification, or architectural distortion to suggest malignancy in either breast. There has been no suspicious interval change. IMPRESSION: 1. No mammographic evidence of malignancy. 2. Recommend routine screening mammography in one year. BI-RADS Category 1: Negative Reviewed, dictated and finalized at location A. MTDD
--- OUTSIDE RECORDS SUMMARY | 2024-08-21 09:05 | XMS_ITS | CONTINUITY OF CARE DOCUMENT ---
Author Name audi, audi Address Unknown Organization [facility] Address [address] [place] [address] Phone [phone] Care Team Providers Care Public Address System Operator Name Role Phone Charlie ULLOA, Shashi Unavailable [phone] PATSY LIN MD Unavailable PATSY LIN MD Unavailable [phone] PROBLEMS Condition Status Date Provider Notes Shortness of breath active Ekaterina Jean-Abptiste Chest pain active Ekaterina Jean-Baptiste Migraines active Kelsey Pace ENCOUNTERS Date Type Provider Location Encounter Diagnosis - In-person encounter Office Visit Shashi Guerra MD [place] [facility] VITAL SIGNS Date Observation Value Provider Body Mass Index (Ratio) 24.80 kg/m2 Tyler Guerra MD blood pressure, cuff size regular Ke romy Hines blood pressure, diastolic 80 mm[Hg] Valentin Pace blood pressure, systolic 120 mm[Hg] Harjeet Hiens oxygen saturation, oximetry 98 % Cecelia Hines [...] Payer name Policy type / Coverage type Sonia red republican ID [facility] [id number] ADVANCE DIRECTIVES Name Date DISCUSSED - NO DECISION MADE TREATMENT PLAN Date Name Performer Cardiology New Patie nt :Chest pain while holding a heavy object and soreness afterward. Kelsey Pace Cardiology New Patie nt :SOB with situational chest pain described above. Kelsey Pace Date Name Stress Routine CT, Coronary Calcium Score Complete Echo HISTORY OF PROCEDURES Procedure Date Procedure Name Provider Procedure Notes S tatus EKG Shashi Guerra MD completed Stress EKG Kal Almanza MD completed Regadenoson, 4 units Brittany Lema MD completed Cardiolite, 2 units Brittany Lema MD completed SPECT Images Brittany Lema MD compl eted
--- OUTSIDE RECORDS SUMMARY | 2024-08-21 09:05 | XMS_ITS | Clinical Summary ---
Author Organization [facility] Address [address] [place] [address] Care Team Providers Care Researcher Name Role Phone Sudhakar Bowman MD Primary Care Provider [phone] Source Comments [facility],non-owned Affiliates and Associated Physician Practices is amultiple site organization consisting of ambulatory clinics and hospital sitesin [place], [place], [place] and [place]. This disclosure is being madepursuant to the Care Everywhere program and may not contain all information available regarding this patient. Last updated 18.[facility] Allergies Active Allergy Reactions Criticality Noted Date [...] VACCINE ( - 2023-2 5 season) 2024 DEPRESSION SCREENING 05/14/2024 INFLUENZA VACCINE (Season Ended) 2025 04/02/20 18 Respiratory Syncytial Virus (RSV) Vaccine Pt: or [...] to complete this topic MENINGOCOCCAL (Group B) VACC INE SHARED DECISION-MAKING Aged Out No longer eligibl e based on patient's age to complete this topic MENINGOCOCCAL GROUPS A/C/Y/W VACCINE Aged Out No longer eligible b ased on patient's age to complete this topic Care Teams Researcher Relationship Specialty Start Date End Date Sudhakar Bowman MD [address] [place] [address] PCP - General 11/28/19
--- OUTSIDE RECORDS SUMMARY | 2024-08-21 09:05 | XMS_ITS | Data Portability ---
Author Organization [place] [facility], Main Office Address [address] [place] [id number] Care Team Providers Care Airline Station Agent Name Role Phone ANITHA MORRISON Primary Care Provider Assessment Encounter Date Assessment Date Assessment LastModified by Organization Details LastModified Time 11/09/2023 11/09/2023 Flu shot: 03/2023 COVID vaccines: 2020, 2020, 2021 Pneumococcal: Shingrix recommended Mammogram and Dexa ordered Colonoscopy: 2019, repeat in 5 years [email or web address] Not available 11/09/2023 10:17:04 Plan of Treatment Reminders Order Date Submit Date Provider Last Modified By Organization Details Last Modified Time Details Appointments Follow Up 15 2024 08:15A M TEVIN Lozada Not available Not available Not available Lab drug screen, urine 2024 025 HALLIE [facility], [address], [place], [address], 08/15/2024 10:31:44 cobalamin and folate panel, serum 2024 025 HALLIE [facility], [address], [place], [address], 08/15/2024 10:31:44 TSH + free T4, serum 2024 025 HALLIE [facility], [address], [place], [address], 08/15/2024 10:31:43 CBC w/ auto diff 2024 025 [email or web address] [facility], [address], [place], [address], 05/16/2024 11:02:37 CMP, serum or plasma 2024 025 [email or web address] [facility], [address], [place], [address], 05/16/2024 11:03:30 lipid panel, serum 2024 025 [email or web address] [facility], [address], [place], [address], 05/16/2024 11:04:21 HbA1c (hemoglob in A1c), blood 2024 025 [email or web address] [facility], [address], [place], [address], 05/16/2024 11:05:19 vitamin D, 25-hydrox y, total, serum 2024 025 [email or web address] [facility], [address], [place], [address], 05/16/2024 11:06:02 TSH, ultra-sen sitive, serum 2024 025 [email or web address] [facility], [address], [place], [address], 05/16/2024 11:06:57 Referral None recorded. Procedures None recorded. Surgeries None recorded. Imaging XR, cervical spine [address] [facility] [place] [place] [facility], [address], [place], [address], 05/22/2024 10:19:24 XR, thoracic spine, 2 view 2024 [facility], [address], [place], [address], 05/21/2024 11:57:32 XR, cervical spine 2023 024 [email or web address] Not available 10/09/2023 11:16:36 Medication Orders celecoxib 100 mg capsule 2024 025 [id number], [address], [place], [id number], 08/15/2024 10:31:43 alprazola m 0.25 mg tablet 2024 025 [facility] #[id number], [address], [place], [id number], 08/15/2024 10:31:39 omeprazol e 40 mg capsule,d elayed release 2023 024 [facility] #[id number], [address], [place], [id number], 11/09/2023 10:17:09 buspirone 10 mg tablet [address] [facility] #[facility], [address], [place], [id number], 08/15/2024 10:00:07 metoprolo l succinate ER 50 mg tablet,ex tended release 24 hr [address] [facility] #58502, [address], [place], [id number], 08/15/2024 10:00:14 Patient TargetsNo targets recorded. Patient Instructions Encounter Date Encounter Id Patient Instructions Last Modified By Organization Details Last Modified Time 05/16/2024 [id number] dementia rating scale-2* HALLIE Not available 05/16/2024 16:22:44 alcohol misuse* HALLIE Not available 05/16/2024 15:58:19 depression screening* HALLIE Not available 05/16/2024 14:19:49 multi-dimensiona l health assessment questionnaire* HALLIE Not available 05/16/2024 15:58:39 Personalized Hea lth Plan and Screening Recommendations Advance Directives - Do you have one? No Advance Directives - Do we have your advance directive on file in your health record? Primary Prevention/Interven tion (prevents or decreases the chance of common diseases from occurring) Smoking Risk: Non Smoker Alcohol Misuse Screening: Negative Weight: Appropriate continue your current weight loss efforts Physical activity: Appropriate physical activity Nutrition: Good Fall Risk (screened today): Low Vaccines Pneumococcal: Ordered Recommended today Recommended today, but you have declined No further needed Influenza: Your next one in the fall of this year Chronic Disease Risks Stroke: Low Risk I have no recommendations Act federico diagnosis, Continue current treatment plan Heart Attack: Low risk I have no recommendations Clogging of the Arteries: Low risk I have no recommendations Diabetes: Low Risk I have no recommendations Secondary Prevention/Interven tion (detects treatable diseases before they may cause symptoms, disability, or ) Breast Cancer Screening with mammogram: Your next mammogram: Ordered Recommended today Cervical/Uterine/Ov dede Cancer Screening: No screening necessary Osteoporosis Screening: Your next DEXA in: Ordered Recomme nded today Date Screening Last Performed: May 2021 Colon Cancer Screening: Colonoscopy Date Screening Last Performed: 2019 Eye Disease Screening: Ordered Recommended today Dementia Risk: Low Intermediate I have no recommendations Depression Screening: Negative Active diagnosis, Continue current treatment plan [email or web address] Not available 05/15/2024 15:42:53 Reason for Referral None Reported. Results Created Date Observation Date Name Description Value Unit Range Abnormal Flag Note LastModifiedBy Organization Detail LastModifiedTime 02/11/20 24 02/11/2024 XR, cervi ashley spine No observ ation record ed. [address], [address], 02/12/2024 09:47:12 02/11/20 24 02/11/2024 XR, cervi ashley spine No observ ation record ed. [address], [address], 02/12/2024 09:47:13 05/21/19 25 05/21/2024 XR, thora cic spine , 2 view No observ ation record ed. [address], [address], 05/22/2024 09:11:37 05/21/19 25 05/21/2024 XR, cervi ashley spine No observ ation record ed. [email or web address] [facility] [address], [place], [address], 05/22/2024 10:19:24 05/21/19 25 05/21/2024 XR, thora cic spine , 2 view No observ ation record ed. [facility] [address], [place], [address], 05/22/2024 10:34:08 06/28/19 25 06/28/2024 MRI, cervi ashley spine , w/o contr ast No observ ation record ed. [address], [place], [address], 07/02/2024 13:02:44 06/28/19 25 06/28/2024 MRI, lumba r spine , w/wo contr ast No observ ation record ed. [address], [place], [address], 07/02/2024 13:03:37 07/18/19 25 07/16/2024 DEXA No observ ation record ed. [address], [place], [address], 07/17/2024 15:20:34 07/18/19 25 07/16/2024 DEXA No observ ation record ed. [address], [place], [address], 07/17/2024 15:29:51 Result Notes None recorded. Problems Name Problem SNOMED Code Status Onset Date Resolution Date Notes Provider Name and Address Organization Details Recorded Time Neoplasm of skin 788795170 Active 2019 Not Available [facility] 3 00:45:23 Peptic ulcer 65730410 Active 2019 Not Available [facility] 3 00:45:24 Chronic back pain 078136845 Active 2019 Not Available [facility] 3 00:45:24 Insomnia 321349625 Active 2018 Not Available [facility] 3 00:45:24 Idiopathic peripheral neuropathy 48996672 Active 2018 Not Available [facility] 3 00:45:24 Malaise and fatigue 438810939 Active 2018 Not Available [facility] 3 00:45:24 Lesion of brain 506302879 Active 2018 Not Available [facility] 3 00:45:24 Osteopenia 454288327 Active 2021 DEXA 05/2021 Not Available [facility] 3 00:45:24 Migraine 84329320 Active 2019 Not Available [facility] 3 00:45:24 Hypokalemia 03340614 Active 2021 Not Available [facility] 3 00:45:24 Polyp of colon 15806038 Active 2019 Not Available [facility] 3 00:45:25 Anxiety 63567517 Active 2022 Jennifer Oviedo MD [address], [place], [address] , [facility] 3 18:01:04 Vitamin D deficiency 71877323 Active 2022 Jennifer Oviedo MD [address], [place], [address] , [facility] 3 09:11:45 Forgetful 05533201 Active 2022 Jennifer Oviedo MD [address], [place], [address] , [facility] 3 09:12:22 Skin lesion 13565519 Active 2022 Jennifer Oviedo MD [address], [place], [address] , [facility] 3 09:12:28 Abdominal bruit 270233098 Active 2022 Jennifer Oviedo MD [address], [place], [address] , [facility] 3 12:50:31 Fatigue 14128920 Active 2022 Jennifer Oviedo MD [address], [place], [address] , [facility] 3 09:11:34 Neck pain 58204284 Active 2023 Jennifer Oviedo MD [address], [place], [address] , [facility] 4 09:28:14 Elevated blood-pressur e reading without diagnosis of hypertension 148628164 Active 2023 Jennifer Oviedo MD [address], [place], [address] , [facility] 4 09:35:32 Essential hypertension 06776917 Active 2023 Jennifer Oviedo MD [address], [place], [address] , [facility] 4 09:14:56 Degeneration of cervical intervertebra l disc 56619342 Active 2023 Jennifer Oviedo MD [address], [place], [address] , [facility] 4 17:42:38 Gastroesophag eal reflux disease without esophagitis 508433423 Active 2023 TEVIN Lozada [address], [place], [address] , [facility] 4 10:15:57 Thoracic back pain 778383356 Active 2024 TEVIN Lozada [address], [place], [address] , [facility] [facility] 10:40:53 Notes:skin cancer tumor on rachael ng Problem Notes None recorded. Procedures Surgical History Date Name Laterality Status Provider Name and Address Organization Details Recorded Time 05/16/19 25 Medicare Wellness CPT Code, subsequent completed TEVIN Lozada [address], [place], [address], [facility] 05/16/2024 10:53:34 05/14/19 20 Date of Last Colonoscopy completed Ashley Goyal RN [facility] 11/09/2023 08:46:18 hysterectomy completed Not Available [facility] 07/12/2022 00:41:56 Imaging Results Imaging Date Name Status LastModified by Organiz ation Details LastModified Time 02/11/2024 XR, cervical spine completed [address], [address], 02/12/2024 09:47:12 02/11/2024 XR, cervical spine completed [address], [address], 02/12/2024 09:47:13 05/21/2024 XR, thoracic spine, 2 view completed [address], [address], 05/22/2024 09:11:37 05/21/2024 XR, cervical spine completed [address], [address], 05/22/2024 10:19:24 05/21/2024 XR, thoracic spine, 2 view completed [address], [address], 05/22/2024 10:34:08 06/28/2024 MRI, cervical spine, w/o contrast completed [address], [place], [address], 07/02/2024 13:02:44 06/28/2024 MRI, lumbar spine, w/wo contrast completed [facility] [address], [place], [address], 07/02/2024 13:03:37 07/16/2024 [facility] [address] [facility] [address], [place], [address], 07/17/2024 15:20:34 07/16/2024 [facility] [address] [facility] [address], [place], [address], 07/17/2024 15:29:51 Procedure Notes None recorded. Medical Equipment None Reported. Allergies Allergen ID Allergen Name Allergen Category Reaction Reaction Severity Criticality Documentation Date Start Date Code Code System Note Provider Name and Address Organization Details Recorded Time 208 Product containin g penicilli n (product) medicatio n Not available Not available Not available 07/12/2022 85536 8001 SNOMED synco pe Not Available [facility] 3 00:49:46 209 cyclobenz aprine medicatio n headache severe Not available 07/12/2022 84117 RxNorm Not Available [facility] 3 00:49:46 210 aspirin medicatio n Not available Not available Not available 07/12/2022 1191 RxNorm itchi ng Not Available [facility] 3 00:49:46 Medications Name Sig Start Date Stop Date Status Note LastModified by Organization Details LastModified Time cyclobenzap rine 10 mg tablet TAKE 1 TABLET BY MOUTH THREE TIMES DAILY 05/11 completed Not Available Not Available Not Available clindamycin HCl 300 mg capsule 11/04 completed Not Available Not Available Not Available metoprolol succinate ER 50 mg tablet,exte nded release 24 hr TAKE 1 TABLET BY MOUTH EVERY DAY 08/15 completed Not Available Not Available Not Available sumatriptan 100 mg tablet TAKE 1 TABLET BY MOUTH AT ONSET OF HEADACHE WITH FLUID. MAY REPEAT AFTER 2 HOURS NEEDED. DO NOT TAKE MORE THEN 2 TABLETS PER 24 HOURS active Not Available Not Available No t Available fluorouraci l 5 % topical cream AUDI TO UPPER CHEST BID FOR 3 WKS 11/04 completed Not Available Not Available Not Available potassium chloride ER 10 mEq tablet,exte nded release Take 1 tablet every day by oral route. active Not Available Not Available No t Available hydrocodone 10 mg-acetamin ophen 325 mg tablet TAKE 1 TABLET BY MOUTH EVERY 6 HOURS NEEDED FOR PAIN 05/11 completed Not Available Not Available Not Available omeprazole 40 mg capsule,del ayed release TAKE 1 CAPSULE BY MOUTH EVERY DAY DIRECTED active Not Available Not Available No t Available amitriptyli ne 50 mg tablet TK 1 T PO QHS 01/05 completed Not Available Not Available Not Available meloxicam 7.5 mg tablet TAKE 1 TABLET BY MOUTH TWICE DAILY X 30 DAYS 2024 active Not Available Not Available Not Avai lable losartan 100 mg-hydrochl orothiazide 25 mg tablet TAKE 1 TABLET BY MOUTH EVERY DAY 2024 active Not Available Not Available Not Avai lable alprazolam 0.25 mg tablet TAKE 1 TABLET BY MOUTH EVERY DAY 2024 active Not Available Not Available Not Avai lable potassium chloride ER 20 mEq tablet,exte nded release(par t/cryst) TK 1 T PO D active Not Available Not Available No t Available famotidine 20 mg tablet TAKE 1 TABLET BY MOUTH TWICE DAILY 10/06 completed Not Available Not Available Not Available amitriptyli ne 25 mg tablet TK 1 T PO D active Not Available Not Available No t Available amitriptyli ne 10 mg tablet 06/07 completed Not Available Not Available Not Available buspirone 10 mg tablet TAKE 1 TABLET BY MOUTH TWICE DAILY NEEDED 08/15 completed Not Available Not Available Not Available gabapentin 300 mg capsule Take 1 capsule twice a day by oral route. active Not Available Not Available No t Available diclofenac sodium 50 mg tablet,gladys yed release TAKE 1 TABLET BY MOUTH TWICE DAILY active Not Available Not Available No t Available budesonide DR - ER 3 mg capsule,del ayed,extend ed release TK 1 C PO D active Not Available Not Available No t Available fentanyl 25 mcg/hr transdermal patch APPLY 1 PATCH TO TRANSDERM AL ROUTE EVERY 72 HOURS active Not Available Not Available No t Available celecoxib 100 mg capsule Take 1 capsule every day by oral route as needed for 90 days. 2024 active Not Available Not Available Not Avai lable topiramate 100 mg tablet Take 1 tablet every day by oral route. active Not Available Not Available No t Available dicyclomine 10 mg capsule 1 po tid prn active Not Available Not Available No t Available atenolol 50 mg tablet TAKE 1 TABLET BY MOUTH EVERY DAY 05/16 completed Not Available Not Available Not Available sumatriptan 6 mg/0.5 mL subcutaneou s pen injector INJECT 0.5 ML UNDER THE SKIN ONCE IF NEEDED FOR MIGRAINE 05/11 completed Not Available Not Available Not Available bupropion HCl XL 300 mg 24 hr tablet, extended release TAKE 1 TABLET BY MOUTH EVERY DAY 05/16 completed Not Available Not Available Not Available bupropion HCl XL 150 mg 24 hr tablet, extended release TAKE 1 TABLET BY MOUTH EVERY DAY active Not Available Not Available No t Available niacinamide 05/11 completed Not Available Not Available Not Available bupropion HCl 300 mg daily with 150mg daily active Not Available Not Available No t Available GaviLyte-G 236 gram-22.74 gram-6.74 gram-5.86 gram oral solution active Not Available Not Available Not Available melatonin 10 mg tablet Take 1 tablet every day by oral route at bedtime. 05/16 completed Not Available Not Available Not Available potassium chloride ER 20 mEq tablet,exte nded release TAKE 1 TABLET BY MOUTH DAILY active Not Available Not Available No t Available niacinamide 500 mg capsule Take 1 capsule every day by oral route. 11/08 completed Not Available Not Available Not Available Aimovig Autoinjecto r 140 mg/mL subcutaneou s auto-inject or INJECT 1 ML UNDER THE SKIN ONCE MONTHLY 10/19 completed Not Available Not Available Not Available Ubrelvy 100 mg tablet Take 1 tablet every day by oral route as needed. 10/28 completed Not Available Not Available Not Available Vitals Date Recorded Body height Body mass index (BMI) Body weight Body temperature Oxygen saturation Oxygen saturation in Arterial blood by Pulse oximetry Heart rate Systolic blood pressure Diastolic blood pressure Provider Name and Address Organization Details Last Updated DateTime 4 160.02 cm 23 kg/m2 88521.0 1 g 97 [degF] 94 % 94 % 80 /min 152 mm[Hg] 88 mm[Hg] CAIN Mendoza [facility] [employer] [facility] 4 17:11:44 Date Recorded Body height Provider Name an d Address Organization Details Last Updated DateTime 10/16/2023 160.02 cm CAIN Mendoza [facility] 10/16/2023 09:52:24 Date Recorded Body height Body mass index (BMI) Body weight Body temperature Heart rate Respiratory rate Oxygen saturation Oxygen saturation in Arterial blood by Pulse oximetry Pain severity - 0-10 verbal numeric rating [Score] - Reported Provider Name and Address Organization Details Last Updated DateTime 4 160.02 cm 24.1 kg/m2 79338.3 1 g 98.1 [degF] 85 /min 20 /min 97 % 97 % 0 Ashley Goyal RN [facility] [employer] [facility] 4 08:38:52 Date Recorded Systolic blood pressure Diastolic blood pressure Provider Name and Address Organization Details Last Updated DateTime 11/09/2023 138 mm[Hg] 88 mm[Hg] Anitha Morrison, SKATES OPERATOR [address] [facility] [address], [place], [address], [facility] 11/09/2023 09:09:40 Date Recorded Body height Body mass index (BMI) Body weight Body temperature Respiratory rate Heart rate Oxygen saturation Oxygen saturation in Arterial blood by Pulse oximetry Pain severity - 0-10 verbal numeric rating [Score] - Reported Systolic blood pressure Diastolic blood pressure Provider Name and Address Organization Details Last Updated DateTime 5 160.02 cm 25 kg/m2 04211.9 2 g 97.5 [degF] 24 /min 54 /min 99 % 99 % 0 120 mm[Hg] 80 mm[Hg] Ashley Goyal RN [facility] [employer] [facility] 5 10:27:54 Date Recorded Body height Body mass index (BMI) Body weight Body temperature Heart rate Respiratory rate Oxygen saturation Oxygen saturation in Arterial blood by Pulse oximetry Pain severity - 0-10 verbal numeric rating [Score] - Reported Systolic blood pressure Diastolic blood pressure Provider Name and Address Organization Details Last Updated DateTime 5 160.02 cm 24.2 kg/m2 05384.6 6 g 97.6 [degF] 79 /min 20 /min 97 % 97 % 5 142 mm[Hg] 82 mm[Hg] Ashley Goyal RN [facility] 10:03:55 Social History Question Answer Notes LastModified by Organization Details LastModified Time Tobacco Smoking Status Never Smoker Not Available [facility] 07/12/2022 00:40:38 Do You Have An Advance Directive? Yes Zahraa Schneider Information not available 11/09/2023 What Is Your Level Of Alcohol Consumption? Occasional [id number] Information not available 07/12/2022 Are You Blind Or Do You Have Difficulty Seeing? Yes Yes A Little Information not available 11/09/2023 What Is Your Level Of Caffeine Consumption? Occasional [id number] Information not available 07/12/2022 How Much Tobacco Do You Chew? None [id number] Information not available 07/12/2022 In The 14 Days Before Symptom Onset, Have You Had Close Contact With A Laboratory-confi rmed COVID-19 While That Case Was Ill? No [id number] Information not available 07/12/2022 In The 14 Days Before Symptom Onset, Have You Had Close Contact With A Person Who Is Under Investigation For COVID-19 While That Person Was Ill? No [id number] Information not available 07/12/2022 Are You Deaf Or Do You Have Serious Difficulty Hearing? Yes Yes A Little Information not available 11/09/2023 What Type Of Diet Are You Following? REGULAR [id number] Information not available 07/12/2022 What Is Your Occupation? RETIRED [id number].[id number] [id number] Information not available 07/12/2022 Have There Been Any Changes To Your Family Or Social Situation? No Information not available 11/09/2023 Are There Any Guns Present In Your Home? Yes Information not available 11/09/2023 Do You Use Insect Repellent Routinely? Yes Information not available 11/09/2023 Where Do You Live? SingleLevelHouse Information not available 11/09/2023 Advance Directive- Providers Has Reviewed Directive And Consents To Follow Them (insert Provider Name With Any Objectives In Notes Field) No Information not available 05/16/2024 Presence Of Domestic Violence No Information not available 05/16/2024 Guns Present In The Home? No Information not available 05/16/2024 Are You Able To Care For Yourself? Yes Information not available 05/16/2024 Are You Blind Or Do Yo Have Difficulty Seeing? Yes Information not available 05/16/2024 Are You Deaf Or Do You Have Serious Difficulty Hearing? No Information not available 05/16/2024 General Stress Level? Low Information not available 05/16/2024 Live Alone Of With Others? With Others Information not available 05/16/2024 Do You Have A Medical Power Of Instructional Design Manager? No Information not available 05/16/2024 What Was The Date Of Your Most Recent Tobacco Screening? 05/16/2022 [id number] Information not available 07/12/2022 How Many Children Do You Have? 1 Information not available 11/09/2023 Have You Ever Been Counseled For Unhealthy Alcohol Use? No [id number].[id number] [id number] Information not available 07/12/2022 Do You Have Any Pets? Yes Information not available 11/09/2023 What Is Your Relationship Status? Information not available 11/09/2023 Do You Use Your Seat Belt Or Car Seat Routinely? Yes [email or web address] Information not available 09/21/2022 Are You Passively Exposed To Smoke? Yes Information not available 11/09/2023 Do You Or Have You Ever Used Smokeless Tobacco? Never Used Smokeless Tobacco [id number].[id number] [id number] Information not available 07/12/2022 Are There Any Smokers In Your House? Yes Information not available 11/09/2023 How Much Tobacco Do You Smoke? No MIGRATION.0301 [id number] Information not available 07/12/2022 Do You Participate In Social Media? Yes [email or web address] Information not available 09/21/2022 Do You Feel Stressed (tense, Restless, Nervous, Or Anxious, Or Unable To Sleep At Night)? [id number] Information not available 11/09/2023 Do You Use Any Illicit Or Recreational Drugs? No [id number] Information not available 07/12/2022 Do You Use Sunscreen Routinely? Yes Information not available 11/09/2023 Has Tobacco Cessation Counseling Been Provided? No MIGRATION.[id number] [id number] Information not available 07/12/2022 Have You Recently Traveled Abroad? No MIGRATION.0301 [id number] Information not available 07/12/2022 Do You Have Any Dietary Restrictions? No MIGRATION.0301 [id number] Information not available 07/12/2022 Do You Or Have You Ever Used Any Other Forms Of Tobacco Or Nicotine? No MIGRATION.0301 [id number] Information not available 07/12/2022 Sex: Unknown Functional Status Question Answer Note LastModified by Organizat ion Details LastModified Time Do you have difficulty walking or climbing stairs? No Information not available 11/09/2023 Do you have transportation difficulties? No Information not available 11/09/2023 Are you able to walk? YESWOREST Information not available 11/09/2023 Do you have difficulty doing errands alone? No Information not available 11/09/2023 Are you able to care for yourself? Yes Information n ot available 11/09/2023 Do you have difficulty dressing or bathing? No Information not available 11/09/2023 What is your exercise level? Occasional [id number] Information not available 07/12/2022 Mental Status Question Answer Note LastModified by Organization D etails LastModified Time Do you have difficulty concentrating, remembering or making decisions? Yes Information no t available 11/09/2023 Family History Relationship Description Onset Age of this Age Resolved Age Notes LastModified by Organization Details LastModified Time Father Hypertensive disorder [id number] Not available 07/12/2022 00:41:58 Father Family history of malignant neoplasm [id number].610 [id number] Not available 07/12/2022 00:41:58 Mother Family history of malignant neoplasm [id number].169 [id number] Not available 07/12/2022 00:41:58 Medical History Condition Response BLINDNESS N RHEUMATIC FEVER N BLADDER PROBLEMS N KIDNEY STONES N OTHER # 1 N POLIO N LUNG DISEASE/DISORDER N RADIATION / CHEMOTHERAPY N COPD N Other # 2 N BLOOD DISEASES N SURGERY N EAR OR HEARING PROBLEMS N MUMPS N DEPRESSION (INCLUDING POST ) N FEMALE PROBLEMS / INFECTIONS N BOWEL PROBLEMS N STROKE/TIA N THYROID DISEASE N ULCERS N BENIGN PROSTATIC HYPERPLASIA N MEASLES N CERVICALGIA N TB SKIN TEST N MYOCARDIAL INFARCTION N PARAPELGIA N OBESITY N GERD/NAUSEA N ANEURYSM N URINARY/BLADDER/KIDNEY PROBLEMS N INPATIENT PSYCH CARE N CORONARY ARTERY DISEASE (CAD) N MENIERE'S DISEASE N ADDICTION CONCERNS N ENDOMETRIOSIS N USE OF BLOOD THINNERS N SKIN PROBLEMS N EMPHYSEMA N GASTROINTESTINAL DISORDER N MUSCLE,JOINT OR BONE PROBLEMS N GASTROINTESTINAL BLEEDING N BLOOD CLOTS N ASTHMA N CATARACTS N ERECTILE DYSFUNCTION N GI PROBLEMS N CHF N Low Testosterone N NEUROPATHY N INFERTILITY N AIDS/HIV N FRACTURES N VISION/EYE PROBLEMS N LIVER DISEASE N MALE HYPOGONADISM N HYPERTENSION Y ANXIETY DISORDER Y BLOOD TRANSFUSION N ANEMIA/BLOOD DISORDER N CHRONIC EAR INFECTIONS N BRONCHITIS N TUBERCULOSIS N GLAUCOMA N DIVERTICULITIS N CHICKENPOX N SLEEP APNEA N ALLERGIES/HAYFEVER Y INFECTIOUS DISEASE N HEART ARRHYTHMIA N PROSTATE N INSOMNIA N HIGH CHOLESTEROL / HYPERLIPIDEMIA N HYPERTHYROIDISM N EYE PROBLEMS N EATING DISORDER N NEUROLOGICAL PROBLEMS N EDEMA N CHRONIC PAIN SYNDROME N HYPOTHYROIDISM N CAROTID BLOCKAGE N CONSTIPATION N BACK / NECK PROBLEMS N HAVE YOU BEEN HOSPITALIZED OR SEEN IN [facility] IN THE PAST YEAR ? N ATHEROSCLEROSIS N BREAST PROBLEMS N DIALYSIS N ECZEMA N FIBROMYALGIA N OSTEOPOROSIS N ARTHRITIS N NO SIGNIFICANT PAST MEDICAL HISTORY N APPENDICITIS N DIABETES, TYPE N BAD TEETH N HEARTBURN / REFLUX Y ADD/ADHD N AUTISM SPECTRUM DISORDER (ASD) N HEPATITIS / LIVER DISEASE N PULMONARY DISEASE N GOUT N SLEEP DISORDER N ALZHEIMER'S DISEASE N PAIN N HERPES N DEMENTIA N HEADACHES/MIGRAINES Y SEIZURES/EPILEPSY N VASCULAR DISEASE N PACEMAKER N DIZZINESS N HEART DISEASE/HEART PROBLEMS N KIDNEY DISEASE N DEVELOPMENTAL OR BEHAVIORAL DISORDERS N MULTIPLE SCLEROSIS N SCARLET FEVER N MENTAL DISORDER/ILLNESS N CARDIAC ARRHYTHMIA N CANCER: SPECIFY N ANESTHESIA COMPLICATIONS N PNEUMONIA N ATRIAL FIBRILLATION N PULMONARY EMBOLISM N AUTOIMMUNE DISEASE N Gynecological History Statement/Question Response If Post Menopausal, Age at Menopause 28 Date of Last Colonoscopy 05/14/2019 Most Recent Bone Density Menses Monthly N Date of Last Pap Smear Current Control Method Menopause Most Recent Mammogram Breast Problems NO Obstetrics History GPAL:G 1 P 0 0 0 1 Type Value Living 1 Total 1 Immunizations Vaccine Type Date Status Note Provider Nam e and Address Organization Details Recorded Time COVID-19, mRNA, LNP-S, PF, 100 mcg/0.5mL dose or 50 mcg/0.25mL dose 2 completed TEVIN Lozada [address], [address], [place], [address], [employer] [facility] [employer] [facility] 11/09/2023 09:01:28 COVID-19, mRNA, LNP-S, PF, 100 mcg/0.5mL dose or 50 mcg/0.25mL dose 1 completed TEVIN Lozada [address], [address], [place], [address], [employer] [facility] [employer] [facility] 11/09/2023 09:01:28 COVID-19, mRNA, LNP-S, PF, 100 mcg/0.5mL dose or 50 mcg/0.25mL dose 1 completed TEVIN oLzada [address], [address], [place], [address], [employer] [facility] [employer] [facility] 11/09/2023 09:01:28 influenza, unspecified formulation 3 completed TEVIN Lozada [address], [address], [place], [address], [employer] [facility] [employer] [facility] 11/09/2023 09:01:28 influenza, unspecified formulation 4 completed TEVIN Lozada [address], [address], [place], [address], [employer] [facility] [employer] [facility] 11/09/2023 09:01:28 influenza, unspecified formulation 2 completed TEVIN Lozada [address], [address], [place], [address], [employer] [facility] [employer] [facility] 11/09/2023 09:01:28 Influenza, split virus, trivalent, preservative 4 completed TEVIN Lozada [address], [place], [address], [employer] [facility] 11/09/2023 09:01:28 Pneumococcal conjugate PCV 13 3 completed Not Available [facility] 07/12/2022 00:49:38 Influenza, high-dose, quadrivalent, PF 3 completed Not Available [facility] 07/12/2022 00:49:38 pneumococcal polysaccharide PPV23 1 completed Not Available [facility] 07/12/2022 00:49:39 Influenza, high-dose, quadrivalent, PF 3 completed Stevie Lazo RN [facility], [place] - [employer] 03/26/2023 11:39:07 Past Encounters Encounter ID Performer Location Encounter Start Date Encounter Closed Date Diagnosis/Indication Diagnosis SNOMED-CT Code Diagnosis ICD10 Code Diagnosis Note [id number] [facility] [place] [address] [place] [address] 07/12/2020 00:00:00 07/13/2020 10:08:20 [id number] [facility] [place] [address] [place] [address] 10/06/2020 00:00:00 10/06/2020 09:03:15 [id number] [facility] [place] [address] [place] [address] 10/28/2020 00:00:00 10/28/2020 12:10:37 [id number] [facility] [place] [address] [place] [address] 12/01/2020 00:00:00 12/01/2020 11:43:05 [id number] [facility] [place] [address] [place] [address] 03/02/2021 00:00:00 03/02/2021 12:06:22 [id number] [facility] [place] [address] [place] [address] 03/14/2021 00:00:00 03/14/2021 16:37:06 [id number] [facility] [place] [address] [place] [address] 05/11/2021 00:00:00 05/12/2021 12:11:44 [id number] [facility] [place] [address] [place] [address] 10/19/2021 00:00:00 10/19/2021 10:34:57 [id number] [facility] [place] [address] [place] [address] 11/29/2021 00:00:00 11/29/2021 09:58:44 [id number] [facility] [place] [address] [place] [address] 01/11/2022 00:00:00 01/11/2022 10:35:41 [id number] [facility] [place] [address] [place] [address] 05/16/2022 00:00:00 05/18/2022 08:55:56 [id number] Jennifer Oviedo MD [facility] [place] [address] [place] [address] 09/21/2022 08:54:22 09/21/2022 09:24:23 Vitamin D deficiency 20541262 E55.9 Forgetful 88647217 R41.3 MMSE done- missed 2 words for recallreas surance givenCould consider weaning off topiramate update 09/21/22: doing well off topirmate, able to recall 3/3 objectscon tinue to observef/u in 6 months Skin lesion 09903749 L98 .9 [id number] Jennifer Oviedo MD [facility] [place] [address] [place] [address] 12/20/2022 12:33:21 12/20/2022 12:57:21 Abdominal aortic aneurysm [id number] I71.40 was told many years ago she had an enlarged aorta but no f/u as far as she knowsvisib le pulse in abdomenwil l get imaging for further evaluation NonsmokerN o h/o htn [id number] Jennifer Oviedo MD [facility] [place] [address] [place] [address] 03/26/2023 08:56:18 03/26/2023 10:36:07 Administration of influenza vaccine 18550212 Z23 Migraine 71587015 G43.90 9 doing well off topiramate Vitamin D deficiency 347 18888 E55.9 Fatigue 02355618 R53.83 check labs [id number] Jennifer Oviedo MD [facility] [place] [address] [place] [address] 08/13/2023 09:11:08 08/13/2023 09:40:45 Neck pain 04715767 M54.2 now resolvedif it recurs, will get xray cervical spine and consider PT, otherwise ok to observe for now Neoplasm of skin 0698300 04 D49.2 needs insurance referral Postmenopausal state 764 97691 Z78.0 Screening mammography 24 861064 Z12.31 Elevated blood-pressure reading without diagnosis of hypertension 828000466 R03.0 elevated todaynurse visit in 2-4 weeks for bp checkf/u in 6 weeks for another check [id number] Jennifer Oviedo MD [facility] [place] [address] [facility] [address] [place] [address] 08/27/2023 08:59:24 09/04/2023 04:06:52 [id number] Jennifer Oviedo MD [facility] [place] [address] [facility] [address] [place] [address] 09/03/2023 09:05:54 09/12/2023 04:01:31 [id number] Jennifer Oviedo MD [facility] [place] [address] [facility] [address] [place] [address] 09/11/2023 09:06:04 09/11/2023 12:12:50 [id number] Jennifer Oviedo MD [facility] [place] [address] [facility] [address] [place] [address] 09/24/2023 17:03:42 09/24/2023 17:50:36 Degeneration of cervical intervertebral disc 29401501 M50.30 neck pain recurred, shooting pain in neckstiffn esspulsing pain Essential hypertension 11358295 I10 d/c atenololtr ial of metoprolol ER 50 mg dailyconti nue losartan/h ctz [id number] DAVID Gomes [facility] Primary Care [facility] [address] [facility] [address] [place] [address] 10/16/2023 09:45:43 10/16/2023 10:14:50 [id number] Anitha Morrison [address] [address] 11/09/2023 08:24:24 11/09/2023 10:19:56 Anxiety 75287442 F41.9 Gastroesop hageal reflux disease without esophagitis 187054550 K21.9 [id number] Anitha Morrison [address] [address] 05/16/2024 10:07:47 05/16/2024 10:56:53 Adult health examination 436718474 Z00.00 Screening for disorder 751918944 Z13.9 Neck pain 65664110 M54.2 Thoracic back pain 69861 8004 M54.6 [id number] Anitha Morrison [address] [address] 08/15/2024 09:39:59 08/15/2024 12:39:56 Anxiety 52245351 F41.9 Managed with 0.25 mg Alprazolam 1/2 tab PO daily Degenerati on of cervical intervertebral disc 73828116 M50.30 Did see pain management , does not want to see again Fatigue 54174636 R53.83 Health Concerns Section Related Observation LastModified by Organization Detai ls LastModified Time None Recorded Concern Status LastModified by Organization Details LastModified Time None Recorded Advance Directives Directive Y: Zahraa Justice Payers Encounter Date Sequence Insurance Name Policy Number Policy Padilla Covered Member ID Padilla Member ID Guarantor Name 09/24/2023 1 [facility] (MEDICARE REPLACEMENT/A DVANTAGE - HMO) [id number] Eliana Arandaon [id number] Eliana Topete Tyson 10/16/2023 1 [facility] (MEDICARE REPLACEMENT/A DVANTAGE - HMO) [id number] Eliana Topete Tyson [id number] Eliana Topete Tyson 11/09/2023 1 [facility] (MEDICARE REPLACEMENT/A DVANTAGE - HMO) [id number] Eliana L Tyson [id number] Eliana L Tyson 05/16/2024 1 [facility] (MEDICARE REPLACEMENT/A DVANTAGE - HMO) [id number] Eliana Topete Tyson [id number] Eliana L Tyson 08/15/2024 1 [facility] (MEDICARE REPLACEMENT/A DVANTAGE - HMO) [id number] Eliana Arandaon [id number] Eliana Arandaon Notes Date Note Type Note Provider Name and Address Organization Details Recorded Time 4 text/html feels heartbeat in abd. Can't always feel it, but can sometimes. Did have pain that was in front of neck x 1 day, now resolved completely. no abd pain. Can also see heartbeat at times. She notes that she was told she has an enlarged aorta when she had an MRI done of her back at least 10 years ago, but no further evaluation or monitoring was done as far as she is aware. update 03/26/23: She is feeling fatigued. She d/c her topiramate and her migraines are controllable with ibuprofen. update 08/13/23: was having terrible shooting pain for 2 months radiating down neck on right side. It is now completely resolved as of 3 days ago. update 09/24/23: blood pressure ranges from 180s at max systolic but sometimes as low as 40 diastolic. She is taking losartan/hctz 100/25 mg daily and was taking atenolol 50 mg 2 tabs daily but dropped back down to 1 when her bp was going low at times. Neck pain is back again, pulsing, shooting, radiating pain. No numbness/tingling, no weakness. Ibuprofen helps. Jennifer Oviedo MD [address] [place] [address], [facility] [address], [place], [address], [place] [facility] [employer] [facility] 09/30/2023 11:00:06 4 text/html Eliana Tyson is a 67 year old female patient here today to establish care. She was previously under the care of Dr. Oviedo. Mixed anxiety/depression managed by bupropion XL 450 mg PO daily. She takes alprazolam PRN for panic attacks, she states she only takes this once every few months. She struggles with insomnia, she takes melatonin She has a history of hypertension. At home averages 140s/80s. losartan 100 - HCTZ 25mg and metoprolol 50 mg PO daily. She admits to dizziness and ringing in her ears occasionally, this has lessened since starting medications. She has a history of acid reflux, this is well managed with omeprazole. History of low potassium, managed with Potassium chloride ER 20 meq. History of migraines headaches. Used to get them 15 per month, had two injections of Aimovig and has not had a migraine since She has issues with CHARLI knee swelling. Flu shot: OVID vaccines: 2020, 2020, neumococcal:Shingrix recommendedMammogram and Dexa orderedColonoscopy: 2019, repeat in 5 years Anitha Morrison, [employer] [address] [facility], [address] [address], [place], [address], [facility] [employer] [facility] 11/09/2023 10:18:00 5 text/html Eliana Tyson is a 68 year old female patient here today for a MAWV She is overall healthy. She does have concerns today with neck pain x4 months and pain between her shoulder blades. She states she feels pain in her lungs hurts when she is walking.She is utilizing Meloxicam 7.5 mg and topical motrin. History of hypertension. On arrival 120/80 Mixed anxiety/depression managed by bupropion XL 450 mg PO daily. She takes alprazolam PRN for panic attacks, she states she only takes this once every few months. She struggles with insomnia, she takes melatonin She has a history of acid reflux, this is well managed with omeprazole. History of low potassium, managed with Potassium chloride ER 20 meq. History of migraines headaches. Used to get them 15 per month, had two injections of Aimovig and has not had a migraine since She has issues with CHARLI knee swelling. Flu shot: UTDCOVID vaccines: declines this yearPneumonia: completedRSV: recommendedDexa and Mammogram scheduled for this summerColonscopy: has GI doctor, needs to schedule. TEVIN Lozada [address] [facility], [facility] [address], [place], [address], [employer] [facility] [employer] 05/16/2024 10:58:52 5 text/html Eliana Tyson 68 year old female here for 3 month follow up on her neck pain. Anxiety - takes 0.25mg alprazolam once per day and breaks this pill in half to make it last longer. Does not see a psychiatrist. Neck pain - has tried physical therapy. Never got an MRI of her neck because they messed up the order. Uses a TENS machine, icy hot, and 7.5mg Meloxicam 2x per day. She cook not think that the Meloxicam helps much. Was seeing pain management, she stopped this as she didn't think it was helping and could do what they were doing at home. Rates pain a 5/10 right now and at its worse 8/10 with radiation to her shoulder blades.Will switch to celebrex. Has trouble sleeping and excess fatigue. Sleeps crazy hours. Goes to bed about 4pm and wakes up about 1am. TEVIN Lozada [address] [facility], [facility] [address], [place], [address], [employer] [facility] [employer] 08/15/2024 12:28:34 OBGyn Episode No OBEpisode recorded.
== END 2024-08-21 08:51 | disposition home or self-care (01) ==
PROVIDERS: PCP Family Medicine
DX: Z12.31 Encounter for screening mammogram for malignant neoplasm of breast (principal)
CPT/HCPCS: 77063; 77067